=== PATIENT | female | born 1975 | race Caucasian/White ===

== ENCOUNTER → 2017-02-11 | Outpatient (REF) | payer OTHER ==
[~2017-02-11] MED LIST: /LOR25TA OR; ACET65TA OR; COLA50CA3 PO; IBUP600T26 PO; NORCO ANEXSIA PO; VICO5TAB16 PO; WELBUTRIN PO; WELLBUTRIN
[2017-02-11 12:45] LABS: BASO % 0.4 % (0.0-1.0); EOS % 1.1 % (0.0-3.0); LARGE UNSTAINED CELL # 0.1 K/mm3 (0.0-0.4); LARGE UNSTAINED CELL % 1.5 % (0.0-4.0); LYMPH # 1.4 K/mm3 (1.5-4.5); LYMPH % 28.8 % (24.0-44.0); MEAN CORPUSCULAR HEMOGLOBIN 29.7 pg (27.0-33.0); MEAN CORPUSCULAR HGB CONC 32.7 g/dl (32.0-36.5); MONO # 0.4 K/mm3 (0.0-0.8); MONO % 8.4 % (0.0-5.0); NEUTROPHILS # 2.8 K/mm3 (1.8-7.7); NEUTROPHILS % 59.8 % (36.0-66.0); PLATELET COUNT, AUTOMATED 273 k/mm3 (150-450); RED CELL DISTRIBUTION WIDTH 12.1 % (11.5-14.5); WHITE BLOOD COUNT 4.7 K/mm3 (4.0-10.0)
[2017-02-11 12:53] LABS: ALBUMIN 4.3 GM/DL (3.2-5.2); ALBUMIN/GLOBULIN RATIO 1.54 (1.00-1.93); ALKALINE PHOSPHATASE 45 U/L (45-117); ALT/SGPT 15 U/L (12-78); ANION GAP 8 MEQ/L (8-16); AST/SGOT 6 U/L (15-37); BILIRUBIN,TOTAL 0.6 MG/DL (0.2-1.0); BLOOD UREA NITROGEN 14 MG/DL (7-18); CALCIUM LEVEL 9.1 MG/DL (8.5-10.1); CARBON DIOXIDE LEVEL 28 MEQ/L (21-32); CHLORIDE LEVEL 104 MEQ/L (98-107); CHOLESTEROL LEVEL 193 MG/DL (<200); CREATININE FOR GFR 0.72 MG/DL (0.55-1.02); GLOMERULAR FILTRATION RATE > 60.0 (>58); GLUCOSE, FASTING 91 MG/DL (70-105); POTASSIUM SERUM 4.6 MEQ/L (3.5-5.1); SODIUM LEVEL 140 MEQ/L (136-145); TOTAL PROTEIN 7.1 GM/DL (6.4-8.2); TRIGLYCERIDES LEVEL 89 MG/DL (<150)
== END ==
LOC: M SFHCADAM 08:22
PROVIDERS: ATTEND Physician Assistant Medical
DX: Z00.00 Encounter for general adult medical examination without abnormal findings (principal); F34.1 Dysthymic disorder; E55.9 Vitamin D deficiency, unspecified

== ENCOUNTER 2018-08-02 21:18 | Emergency (ER) | payer OTHER ==
[2018-08-02] MEDS: NS 1,000 ML IV (22:10)
[2018-08-02] MEDS: MORPHINE 2 MG/ML 1ML SYRINGE (J2270) IV (22:10)
[2018-08-02] MEDS: ONDANSETRON 4MG/2ML VIAL (J2405) IV (22:10)
[2018-08-02] MEDS: KETOROLAC 30 MG/ML VIAL (J1885) IV (22:10)
[2018-08-02 22:13] LABS: BILIRUBIN, URINE MANUAL NEGATIVE (NEGATIVE); BLOOD URINE MANUAL RFX POSITIVE (NEGATIVE); GLUCOSE, URINE (UA) MANUAL NEGATIVE (NEGATIVE); KETONE, URINE MANUAL NEGATIVE (NEGATIVE); MICROSCOPIC INDICATED? RFX YES (NO); NITRITE, URINE MANUAL RFX POSITIVE (NEGATIVE); PROTEIN, URINE MANUAL REFLEX NEGATIVE (NEGATIVE); SP GRAVITY,URINE MANUAL REFLEX 1.005 (1.002-1.035); UROBILINOGEN, URINE MANUAL NORMAL (NORMAL)
[2018-08-02 22:16] LABS: BASO % 0.3 % (0.0-1.0); EOS # 0.1 10^3/uL (0.0-0.50); EOS % 0.7 % (0.0-3.0); HEMOGLOBIN 13.1 g/dl (12.0-15.5); IMMATURE GRANULOCYTE % 0.4 % (0-3.0); LYMPH # 2.1 10^3/uL (1.5-4.5); MEAN CORPUSCULAR HEMOGLOBIN 30.5 pg (27.0-33.0); MEAN CORPUSCULAR HGB CONC 33.6 g/dl (32.0-36.5); MEAN CORPUSCULAR VOLUME 90.7 fl (80.0-96.0); MONO # 0.7 10^3/uL (0.0-0.8); MONO % 5.9 % (0.0-5.0); NEUTROPHILS # 8.7 10^3/uL (1.8-7.7); NEUTROPHILS % 74.7 % (36.0-66.0); PLATELET COUNT, AUTOMATED 314 10^3/uL (150-450); RED CELL DISTRIBUTION WIDTH 12.1 % (11.5-14.5); WHITE BLOOD COUNT 11.6 10^3/uL (4.0-10.0)
[2018-08-02 22:20] LABS: CONTROL LINE HCG INT CTR LINE PRESENT; HCG, SERUM QUALITATIVE NEGATIVE (NEGATIVE)
[2018-08-02 22:23] LABS: BACTERIA, URINE SMALL AMOUNT; HYALINE CAST, URINE NONE SEEN /lpf (0-1); MICROSCOPIC EXAM PERFORMED; SQUAMOUS EPITHELIAL CELL URINE SMALL AMOUNT /hpf (SMALL AMT)
[2018-08-02 22:26] LABS: ALBUMIN/GLOBULIN RATIO 1.18 (1.00-1.93); ALKALINE PHOSPHATASE 66 U/L (45-117); ALT/SGPT 20 U/L (12-78); ANION GAP 9 MEQ/L (8-16); AST/SGOT 17 U/L (7-37); BILIRUBIN,DIRECT < 0.1 MG/DL (0.0-0.2); BILIRUBIN,TOTAL 0.4 MG/DL (0.2-1.0); BLOOD UREA NITROGEN 9 MG/DL (7-18); CARBON DIOXIDE LEVEL 22 MEQ/L (21-32); CHLORIDE LEVEL 110 MEQ/L (98-107); CREATININE FOR GFR 0.78 MG/DL (0.55-1.30); GLOMERULAR FILTRATION RATE > 60.0 (>58); GLUCOSE, FASTING 88 MG/DL (70-100); LIPASE 257 U/L (73-393); POTASSIUM SERUM 4.1 MEQ/L (3.5-5.1); SODIUM LEVEL 141 MEQ/L (136-145); TOTAL PROTEIN 7.4 GM/DL (6.4-8.2)
[2018-08-03] MEDS: CIPROFLOXACIN 500 MG TAB PO (00:50)
[2018-08-03] MEDS: NORCO 5/325MG TABLET (BULK FOR ED) PO (00:50)
== END 2018-08-03 00:59 | disposition home or self-care (01) ==
LOC: M ED 08-03 00:59
DX: N39.0 Urinary tract infection, site not specified (principal); R11.0 Nausea; G89.29 Other chronic pain; Z79.899 Other long term (current) drug therapy
CPT/HCPCS: J2405

== ENCOUNTER → 2018-08-02 | Outpatient (REF) | payer OTHER ==
[2018-08-02 22:22] LABS: APPEARANCE, URINE CLEAR (CLEAR); BACTERIA, URINE AUTO 1+ (NEGATIVE); BILIRUBIN, URINE AUTO NEGATIVE (NEGATIVE); BLOOD, URINE BLOOD 3+ (NEGATIVE); COLOR, URINE AMBER (YELLOW); GLUCOSE, URINE (UA) AUTO NEGATIVE (NEGATIVE); KETONE, URINE AUTO NEGATIVE (NEGATIVE); LEUKOCYTE ESTERASE, URINE AUTO 3+ (NEGATIVE); NITRITE, URINE AUTO POSITIVE (NEGATIVE); PROTEIN, URINE AUTO NEGATIVE (NEGATIVE); RBC, URINE AUTO 0 /HPF (0-3); SPECIFIC GRAVITY URINE AUTO 1.001 (1.002-1.035); SQUAMOUS EPITHELIAL CELL UR AU 0 /HPF (0-6); WBC, URINE AUTO 29 /HPF (0-3)
== END ==
LOC: M LAB REF 15:30
DX: N39.0 Urinary tract infection, site not specified (principal)

== ENCOUNTER → 2019-01-02 | Outpatient (CLI) | payer OTHER ==
[~2019-01-02] MED LIST changes: +CIPR-249 PO; +IBUP-1022 PO
--- NOTE | 2019-01-02 15:03 | REP ---
RIGHT SHOULDER, THREE VIEWS: HISTORY: Contusion. There is no acute fracture or dislocation. The joint spaces are normal in appearance. A subchondral cyst is present in the head of the humerus. IMPRESSION:There is no acute fracture or dislocation. Electronically Signed by Tomas Byrd MD 01/02/2019 03:05 P
== END ==
LOC: M ADAMS 11:39
PROVIDERS: ATTEND Physician Assistant
DX: S40.011A Contusion of right shoulder, initial encounter (principal); Y92.89 Other specified places as the place of occurrence of the external cause; Y93.89 Activity, other specified; Y99.8 Other external cause status; X58.XXXA Exposure to other specified factors, initial encounter

== ENCOUNTER → 2020-10-03 | Outpatient (CLI) | payer OTHER ==
--- NOTE | 2020-10-04 03:43 | REP ---
INDICATION: RIGHT HIP PAIN, LOW BACK PAIN RADIATING TO RIGHT LEG COMPARISON: None. TECHNIQUE: AP, lateral, bilateral oblique, and coned-down views of the lumbar spine. FINDINGS: Alignment and lordosis maintained. Vertebral bodies are intact. Disc spaces are relatively well maintained although minimal disc space narrowing at L4-5 and L5-S1 cannot be excluded. Chronic L5 spondylolysis without spondylolisthesis cannot be excluded. No acute vertebral body fracture/compression injury or subluxation. IMPRESSION: Minimal disc space narrowing at L4-5 and L5-S1 cannot be excluded. Chronic L5 spondylolysis without spondylolisthesis cannot be excluded. <Electronically signed by Jeramy Andrade > 10/04/20 [id number]
--- NOTE | 2020-10-04 03:45 | REP ---
INDICATION: RIGHT HIP PAIN, LOW BACK PAIN RADIATING TO RIGHT LEG COMPARISON: None. TECHNIQUE: AP and frog-lateral views of the hip FINDINGS: No evidence for acute or healed injury. Hip joint space appears intact and essentially age-appropriate. No arthritic changes are appreciated. No periarticular calcifications or loose bodies are identified. Surrounding soft tissues are normal. IMPRESSION: Age-appropriate right hip radiographs. <Electronically signed by Jeramy Andrade > 10/04/20 [id number]
== END ==
LOC: M ADAMS 08:43
PROVIDERS: ATTEND Physician Assistant Medical
DX: M54.5 Low back pain (principal); M25.551 Pain in right hip

== ENCOUNTER → 2020-10-03 | Outpatient (REF) | payer OTHER ==
[2020-10-03 12:52] LABS: BASO # 0.1 10^3/uL (0.0-0.2); BASO % 0.7 % (0.0-1.0); EOS # 0.1 10^3/uL (0.0-0.5); EOS % 1.1 % (0.0-3.0); HEMATOCRIT 41.8 % (36.0-47.0); HEMOGLOBIN 13.3 g/dl (12.0-15.5); LYMPH # 1.7 10^3/uL (1.5-5.0); LYMPH % 23.7 % (24.0-44.0); MEAN CORPUSCULAR HEMOGLOBIN 29.4 pg (27.0-33.0); MEAN CORPUSCULAR HGB CONC 31.8 g/dl (32.0-36.5); MEAN CORPUSCULAR VOLUME 92.5 fl (80.0-96.0); MONO # 0.7 10^3/uL (0.0-0.8); MONO % 10.5 % (0.0-5.0); NEUTROPHILS # 4.5 10^3/uL (1.5-8.5); NEUTROPHILS % 63.6 % (36.0-66.0); PLATELET COUNT, AUTOMATED 314 10^3/uL (150-450); RED BLOOD COUNT 4.52 10^6/uL (4.00-5.40)
[2020-10-03 13:42] LABS: ALBUMIN 4.2 GM/DL (3.2-5.2); ALT/SGPT 16 U/L (12-78); BILIRUBIN,TOTAL 0.8 MG/DL (0.2-1.0); BLOOD UREA NITROGEN 12 MG/DL (7-18); CALCIUM LEVEL 9.2 MG/DL (8.5-10.1); CARBON DIOXIDE LEVEL 25 MEQ/L (21-32); CHLORIDE LEVEL 103 MEQ/L (98-107); CHOLESTEROL LEVEL 232 MG/DL (<200); CHOLESTEROL RISK RATIO 3.314 (<5); CREATININE FOR GFR 0.88 MG/DL (0.55-1.30); FREE T4 0.94 NG/DL (0.76-1.46); GLOMERULAR FILTRATION RATE > 60.0 (>58); GLUCOSE, FASTING 95 MG/DL (70-100); HDL CHOLESTEROL 70 MG/DL (>40); LDL CHOLESTEROL 145 MG/DL (<100); NON-HDL-C 162 MG/DL; POTASSIUM SERUM 4.8 MEQ/L (3.5-5.1); SODIUM LEVEL 137 MEQ/L (136-145); TOTAL 25(OH) VITAMIN D 21.8 NG/ML (30.0-100.0); TOTAL PROTEIN 7.4 GM/DL (6.4-8.2); TRIGLYCERIDES LEVEL 84 MG/DL (<150)
== END ==
LOC: M SFHCADAM 08:40
PROVIDERS: ATTEND Physician Assistant Medical
DX: F34.1 Dysthymic disorder (principal); E55.9 Vitamin D deficiency, unspecified

== ENCOUNTER → 2020-11-07 | Outpatient (CLI) | payer OTHER ==
--- NOTE | 2020-11-07 10:04 | REPVR ---
PROCEDURE INFORMATION: Exam: MR Lumbar Spine Without Contrast. Exam date and time: 11/07/2020 7:58 AM Age: 45 years old Clinical indication: Low back pain; Additional info: Lumbar disc degeneration, lbp, RT hip pain TECHNIQUE: Imaging protocol: Multiplanar magnetic resonance images of the lumbar spine without intravenous contrast. COMPARISON: DX SPINE LS COMPLETE 10/03/2020 8:31 AM FINDINGS: Vertebrae: Unremarkable. Spinal cord: Normal signal. No cord compression. L1-L2: No significant disc disease. No significant spinal canal stenosis. No neural foraminal stenosis. L2-L3: No significant disc disease. No significant spinal canal stenosis. No neural foraminal stenosis. L3-L4: There is mild disc bulging. There is facet arthropathy and ligamentum flavum hypertrophy. There is mild spinal canal stenosis. L4-L5: There is degenerative disc disease including disc space narrowing and dessication. There is a moderate disc bulge with a small superimposed central disc herniation. Disc bulging extends into both neural foramen causing mild bilateral neural foraminal narrowing, right worse than left. There is facet arthropathy and ligamentum flavum hypertrophy. L5-S1: There is mild disc bulging. Soft tissues: Unremarkable. IMPRESSION: Mild multilevel degenerative changes in as described above. Electronically signed by: Dheeraj Baumann On 11/07/2020 10:04:44 AM
== END ==
LOC: M RAD 06:42
PROVIDERS: ATTEND Physician Assistant Medical
DX: M51.36 Other intervertebral disc degeneration, lumbar region (principal); M51.27 Other intervertebral disc displacement, lumbosacral region; M25.551 Pain in right hip

== ENCOUNTER → 2020-12-12 | Outpatient (CLI) | payer OTHER | LOC: M LABSMTC 14:19 | PROVIDERS: ATTEND Family Medicine | DX: Z20.822 Contact with and (suspected) exposure to COVID-19 (principal) ==

== ENCOUNTER → 2021-02-18 | Outpatient (REF) | payer OTHER | LOC: M SFHCADAM 11:35 | PROVIDERS: ATTEND Physician Assistant Medical | DX: R30.0 Dysuria (principal) ==

== ENCOUNTER → 2021-02-20 | Outpatient (REF) | payer OTHER ==
[2021-02-20 12:43] LABS: APPEARANCE, URINE MANUAL HAZY (CLEAR); COLOR, URINE MANUAL ORANGE (YELLOW); SPECIFIC GRAVITY,URINE MANUAL 1.013 (1.002-1.035)
[2021-02-20 12:44] LABS: BILIRUBIN, URINE MANUAL OBSCURED (NEGATIVE); BLOOD URINE MANUAL OBSCURED (NEGATIVE); GLUCOSE, URINE (UA) MANUAL OBSCURED mg/dL (NEGATIVE); KETONE, URINE MANUAL OBSCURED mg/dL (NEGATIVE); LEUKOCYTE ESTERASE, URINE MAN OBSCURED (NEGATIVE); NITRITE, URINE MANUAL OBSCURED (NEGATIVE); PROTEIN, URINE MANUAL OBSCURED mg/dL (NEGATIVE); UROBILINOGEN, URINE MANUAL OBSCURED mg/dl (NORMAL)
[2021-02-20 12:46] LABS: BACTERIA, URINE SMALL AMOUNT; HYALINE CAST, URINE NONE SEEN /lpf (0-1); SQUAMOUS EPITHELIAL CELL URINE SMALL AMOUNT /hpf (SMALL AMT)
== END ==
LOC: M SFHCADAM 11:26
PROVIDERS: ATTEND Physician Assistant Medical
DX: R30.0 Dysuria (principal)

== ENCOUNTER → 2021-03-10 | Outpatient (REF) | payer OTHER ==
[2021-03-10 19:11] LABS: APPEARANCE, URINE CLEAR (CLEAR); BACTERIA, URINE AUTO NEGATIVE (NEGATIVE); BILIRUBIN, URINE AUTO NEGATIVE (NEGATIVE); BLOOD, URINE BLOOD 1+ (NEGATIVE); COLOR, URINE YELLOW (YELLOW); GLUCOSE, URINE (UA) AUTO NEGATIVE (NEGATIVE); KETONE, URINE AUTO NEGATIVE (NEGATIVE); LEUKOCYTE ESTERASE, URINE AUTO NEGATIVE (NEGATIVE); MUCUS, URINE SMALL (NEGATIVE); NITRITE, URINE AUTO NEGATIVE (NEGATIVE); PROTEIN, URINE AUTO NEGATIVE (NEGATIVE); RBC, URINE AUTO 2 /HPF (0-3); SPECIFIC GRAVITY URINE AUTO 1.019 (1.002-1.035); SQUAMOUS EPITHELIAL CELL UR AU 1 /HPF (0-6); UROBILINOGEN, URINE AUTO 0.2 mg/dL (0.0-2.0); WBC, URINE AUTO 0 /HPF (0-3)
== END ==
LOC: M LAB REF 16:26
PROVIDERS: ATTEND Obstetrics & Gynecology
DX: N39.41 Urge incontinence (principal)

== ENCOUNTER → 2021-04-28 | Outpatient (REF) | payer OTHER | LOC: M SFHCPLAZ 09:50 | PROVIDERS: ATTEND Physician Assistant | DX: R50.9 Fever, unspecified (principal) ==

== ENCOUNTER → 2021-04-29 | Outpatient (CLI) | payer OTHER ==
[2021-04-29 10:06] LABS: BASO % 0.6 % (0.0-1.0); EOS # 0.1 10^3/uL (0.0-0.5); EOS % 1.8 % (0.0-3.0); HEMATOCRIT 39.7 % (36.0-47.0); HEMOGLOBIN 13.1 g/dl (12.0-15.5); LYMPH # 1.2 10^3/uL (1.5-5.0); LYMPH % 23.5 % (24.0-44.0); MEAN CORPUSCULAR HEMOGLOBIN 30.1 pg (27.0-33.0); MEAN CORPUSCULAR VOLUME 91.3 fl (80.0-96.0); MONO # 0.7 10^3/uL (0.0-0.8); MONO % 13.3 % (2.0-8.0); NEUTROPHILS # 3.1 10^3/uL (1.5-8.5); NEUTROPHILS % 60.6 % (36.0-66.0); PLATELET COUNT, AUTOMATED 256 10^3/uL (150-450); RED BLOOD COUNT 4.35 10^6/uL (4.00-5.40); WHITE BLOOD COUNT 5.1 10^3/uL (4.0-10.0)
[2021-04-29 11:07] LABS: ALBUMIN 3.5 GM/DL (3.2-5.2); ALT/SGPT 12 U/L (12-78); BILIRUBIN,TOTAL 0.5 MG/DL (0.2-1.0); BLOOD UREA NITROGEN 11 MG/DL (7-18); CALCIUM LEVEL 8.9 MG/DL (8.5-10.1); CARBON DIOXIDE LEVEL 31 MEQ/L (21-32); CHLORIDE LEVEL 104 MEQ/L (98-107); GLOMERULAR FILTRATION RATE > 60.0 (>58); GLUCOSE, FASTING 90 MG/DL (70-100); POTASSIUM SERUM 4.5 MEQ/L (3.5-5.1); SODIUM LEVEL 137 MEQ/L (136-145); TOTAL PROTEIN 6.5 GM/DL (6.4-8.2)
== END ==
LOC: M LAB 09:26
PROVIDERS: ATTEND Physician Assistant
DX: R50.9 Fever, unspecified (principal)

== ENCOUNTER → 2021-04-29 | Outpatient (CLI) | payer OTHER ==
--- NOTE | 2021-04-29 09:02 | REP ---
INDICATION: FEVER IN ADULT COMPARISON: 06/06/2012. TECHNIQUE: PA/Lateral FINDINGS: Lungs: Clear, no infiltrate. Heart: Normal in size. Mediastinum: Mediastinal silhouette unremarkable. Pleural angles: Unremarkable.. Bones and soft tissues: Unremarkable. IMPRESSION: No acute pulmonary disease. <Electronically signed by Johny Smalls > 04/29/21 [id number]
== END ==
LOC: M ADAMS 08:10
PROVIDERS: ATTEND Physician Assistant
DX: R50.9 Fever, unspecified (principal)

== ENCOUNTER → 2022-01-22 | Outpatient (CLI) | payer OTHER | LOC: M WHC 08:00 | PROVIDERS: ATTEND Physician Assistant Medical | DX: Z12.31 Encounter for screening mammogram for malignant neoplasm of breast (principal) ==

== ENCOUNTER → 2022-02-25 | Outpatient (CLI) | payer OTHER ==
[~2022-02-25] MED LIST changes: +THERTAB52 PO; +TRAZ-252 PO; +WELLTAB40 PO
== END ==
LOC: M LABSMTC 09:58
PROVIDERS: ATTEND Anesthesiology
DX: Z01.818 Encounter for other preprocedural examination (principal); Z11.52 Encounter for screening for COVID-19

== ENCOUNTER 2022-03-02 08:01 | Day surgery (SDC) | payer OTHER ==
[~2022-03-02] VITALS: Ht 162.6 cm; Wt 69.4 kg
[~2022-03-02 08:01] MED LIST changes: +LIDOCAINE 1% MDV 20ML VIAL SQ PRN
[2022-03-02] MEDS ORDERED: MIDAZOLAM INJ 2MG/2ML VIAL (J2250 PER 1MG) As Ordered ONE (08:50)
[2022-03-02] MEDS ORDERED: dexameTHASONE 4 MG/ML 1ML VIAL (J1100 PER 1MG) As Ordered ONE (08:50)
[2022-03-02] MEDS ORDERED: propofoL 200 MG/20 ML VIAL As Ordered ONE (08:50)
[2022-03-02] MEDS ORDERED: ONDANSETRON 4MG/2ML VIAL As Ordered ONE (08:50)
[2022-03-02] MEDS ORDERED: fentaNYL 250 MCG/5 ML INJECTION As Ordered ONE (08:50)
[2022-03-02] MEDS ORDERED: ROCURONIUM BROMIDE 50 MG/5 ML VIAL As Ordered ONE (08:50)
[2022-03-02] MEDS ORDERED: LIDOCAINE 2% 100MG/5ML SDV (FOR ANES.) As Ordered ONE (08:51)
[2022-03-02] MEDS ORDERED: LR 1,000 ML IV ONE (09:00)
[2022-03-02] MEDS ORDERED: COCAINE 4% 4ML NASAL SOLUTION BTL As Ordered ONE (09:28)
[2022-03-02] MEDS: OXYMETAZOLINE 0.05% NASAL SPRAY (AFRIN) As Ordered ONE ×2 (09:28→10:40)
[2022-03-02] MEDS ORDERED: SEVOFLURANE INHAL SOLN 250 ML BTL As Ordered ONE (09:38)
[2022-03-02] MEDS: LIDOCAINE W/EPINEPHRINE 1% 20ML VIAL As Ordered ONE ×2 (10:22→10:36)
[2022-03-02] MEDS ORDERED: MORPHINE 4 MG/ML 1ML VIAL/SYRINGE IV PRN (11:10)
[2022-03-02] MEDS ORDERED: ANEXSIA, NORCO 7.5MG/325MG TABLET(HYDROCODONE/APAP) PO PRN (11:10)
[2022-03-02] MEDS ORDERED: LR 1,000 ML IV SCH ×2 (11:10)
[2022-03-02] MEDS ORDERED: METOCLOPRAMIDE INJ 10MG/2ML VIAL (J2765 PER 1) IV PRN (11:10)
[2022-03-02] MEDS ORDERED: ONDANSETRON 4MG/2ML VIAL IV PRN ×2 (11:10)
[2022-03-02] MEDS ORDERED: oxyCODONE 5MG TAB PO PRN (11:10)
[2022-03-02] MEDS ORDERED: fentaNYL 100 MCG/2 ML INJECTION IV PRN (11:10)
[2022-03-02] MEDS ORDERED: HYDROMORPHONE HCL 0.5 MG/ 0.5 ML SYRINGE (J1170 PER 1) IV PRN (11:10)
[2022-03-02 12:50] VITALS: BP 150/85
== END 2022-03-02 13:10 | disposition home or self-care (01) ==
LOC: M SDC 08:01
PROVIDERS: ATTEND Otolaryngology
DX: J34.2 Deviated nasal septum (principal); J34.3 Hypertrophy of nasal turbinates; K57.92 Diverticulitis of intestine, part unspecified, without perforation or abscess without bleeding; F41.9 Anxiety disorder, unspecified; F32.9 Major depressive disorder, single episode, unspecified; Z79.899 Other long term (current) drug therapy
CPT/HCPCS: 30140; 30520; 88300; C9046; J1100; J1170; J2250; J2405; J3010

== ENCOUNTER → 2022-11-17 | Outpatient (REF) | payer OTHER ==
[~2022-11-17] MED LIST changes: -LIDOCAINE 1% MDV 20ML VIAL SQ PRN
[2022-11-17 12:41] LABS: BASO % 0.6 % (0.0-1.0); EOS # 0.1 10^3/uL (0.0-0.5); EOS % 1.6 % (0.0-3.0); HEMATOCRIT 40.9 % (36.0-47.0); HEMOGLOBIN 13.3 g/dl (12.0-15.5); LYMPH # 1.7 10^3/uL (1.5-5.0); LYMPH % 27.4 % (24.0-44.0); MEAN CORPUSCULAR HEMOGLOBIN 30.8 pg (27.0-33.0); MEAN CORPUSCULAR HGB CONC 32.5 g/dl (32.0-36.5); MEAN CORPUSCULAR VOLUME 94.7 fl (80.0-96.0); MONO # 0.7 10^3/uL (0.0-0.8); MONO % 11.5 % (2.0-8.0); NEUTROPHILS # 3.6 10^3/uL (1.5-8.5); NEUTROPHILS % 58.4 % (36.0-66.0); PLATELET COUNT, AUTOMATED 277 10^3/uL (150-450); RED BLOOD COUNT 4.32 10^6/uL (4.00-5.40); WHITE BLOOD COUNT 6.2 10^3/uL (4.0-10.0)
[2022-11-17 13:06] LABS: ALBUMIN 3.9 G/DL (3.2-5.2); ALKALINE PHOSPHATASE 47 U/L (46-116); ALT/SGPT 10 U/L (7.0-40); AST/SGOT 14 U/L (<34); BILIRUBIN,TOTAL 0.3 MG/DL (0.3-1.2); BLOOD UREA NITROGEN 14 MG/DL (9-23); CALCIUM LEVEL 8.9 MG/DL (8.5-10.1); CARBON DIOXIDE LEVEL 27 MMOL/L (20-31); CHLORIDE LEVEL 105 MMOL/L (98-107); CHOLESTEROL LEVEL 200 MG/DL (<200); CHOLESTEROL RISK RATIO 2.58 (<5); CREATININE FOR GFR 0.75 MG/DL (0.55-1.30); GLOMERULAR FILTRATION RATE > 60.0 (>58); GLUCOSE, FASTING 75 MG/DL (60-100); HDL CHOLESTEROL 77.3 MG/DL (>40); LDL CHOLESTEROL 88.9 MG/DL (<100); NON-HDL-C 123 MG/DL; POTASSIUM SERUM 4.5 MMOL/L (3.5-5.1); SODIUM LEVEL 139 MMOL/L (136-145); THYROID STIMULATING HORMONE 2.018 uIU/ML (0.55-4.78); TOTAL PROTEIN 6.9 G/DL (5.7-8.2); TRIGLYCERIDES LEVEL 169 MG/DL (<150)
== END ==
LOC: M SFHCADAM 09:47
PROVIDERS: ATTEND Physician Assistant Medical
DX: E78.2 Mixed hyperlipidemia (principal); E55.9 Vitamin D deficiency, unspecified; F51.01 Primary insomnia; F34.1 Dysthymic disorder

== ENCOUNTER → 2023-03-09 | Outpatient (CLI) | payer OTHER | LOC: M PLAIMG 15:58 | PROVIDERS: ATTEND Physician Assistant | DX: R05.9 Cough, unspecified (principal) ==

== ENCOUNTER → 2023-03-25 | Outpatient (CLI) | payer OTHER ==
[~2023-03-25] MED LIST changes: +ISOVUE-370 76% 100ML VIAL As Ordered ONE
== END ==
LOC: M RAD 10:38
PROVIDERS: ATTEND Physician Assistant
DX: R91.1 Solitary pulmonary nodule (principal)
CPT/HCPCS: 71260; Q9967

== ENCOUNTER → 2024-04-13 | Outpatient (REF) | payer OTHER ==
[~2024-04-13] MED LIST changes: -ISOVUE-370 76% 100ML VIAL As Ordered ONE
== END ==
LOC: M SFHCWAGY 15:03
PROVIDERS: ATTEND Nurse Practitioner Family
DX: Z12.72 Encounter for screening for malignant neoplasm of vagina (principal)
CPT/HCPCS: 87624; G0123

== ENCOUNTER → 2024-04-13 | Outpatient (CLI) | payer OTHER | LOC: M WHC 07:29 | PROVIDERS: ATTEND Nurse Practitioner Family | DX: Z12.31 Encounter for screening mammogram for malignant neoplasm of breast (principal) ==

== ENCOUNTER → 2024-04-13 | Outpatient (CLI) | payer OTHER ==
[2024-04-13 14:43] LABS: BASO % 0.8 % (0.0-1.0); EOS # 0.1 10^3/uL (0.0-0.5); EOS % 1.8 % (0.0-3.0); HEMATOCRIT 38.9 % (36.0-47.0); HEMOGLOBIN 12.8 g/dl (12.0-15.5); LYMPH # 1.5 10^3/uL (1.5-5.0); LYMPH % 30.3 % (24.0-44.0); MEAN CORPUSCULAR HEMOGLOBIN 30.5 pg (27.0-33.0); MEAN CORPUSCULAR HGB CONC 32.9 g/dl (32.0-36.5); MEAN CORPUSCULAR VOLUME 92.8 fl (80.0-96.0); MONO # 0.6 10^3/uL (0.0-0.8); NEUTROPHILS # 2.7 10^3/uL (1.5-8.5); NEUTROPHILS % 54.9 % (36.0-66.0); PLATELET COUNT, AUTOMATED 247 10^3/uL (150-450); RED BLOOD COUNT 4.19 10^6/uL (4.00-5.40); WHITE BLOOD COUNT 4.9 10^3/uL (4.0-10.0)
[2024-04-13 15:09] LABS: ALBUMIN 3.9 G/DL (3.2-5.2); ALKALINE PHOSPHATASE 49 U/L (46-116); ALT/SGPT 18 U/L (7.0-40); AST/SGOT 9 U/L (<34); BILIRUBIN,TOTAL 0.6 MG/DL (0.3-1.2); BLOOD UREA NITROGEN 13 MG/DL (9-23); CALCIUM LEVEL 9.7 MG/DL (8.5-10.1); CARBON DIOXIDE LEVEL 29 MMOL/L (20-31); CHLORIDE LEVEL 108 MMOL/L (98-107); CHOLESTEROL LEVEL 219 MG/DL (<200); CHOLESTEROL RISK RATIO 3.03 (<5); CREATININE FOR GFR 0.76 MG/DL (0.55-1.30); GLOMERULAR FILTRATION RATE > 60.0 (>58); GLUCOSE, FASTING 86 MG/DL (60-100); HDL CHOLESTEROL 72.1 MG/DL (>40); LDL CHOLESTEROL 134.3 MG/DL (<100); NON-HDL-C 146.9 MG/DL; POTASSIUM SERUM 4.6 MMOL/L (3.5-5.1); SODIUM LEVEL 141 MMOL/L (136-145); TOTAL PROTEIN 6.6 G/DL (5.7-8.2); TRIGLYCERIDES LEVEL 63 MG/DL (<150)
[2024-04-13 15:10] LABS: THYROID STIMULATING HORMONE 2.113 uIU/ML (0.55-4.78)
[2024-04-13 15:11] LABS: TOTAL 25(OH) VITAMIN D 55.6 NG/ML (20.0-100.0)
== END ==
LOC: M PLALAB 09:07
PROVIDERS: ATTEND Physician Assistant Medical
DX: Z00.00 Encounter for general adult medical examination without abnormal findings (principal); E55.9 Vitamin D deficiency, unspecified; E78.2 Mixed hyperlipidemia; F51.01 Primary insomnia; F34.1 Dysthymic disorder

== ENCOUNTER → 2025-08-23 | Outpatient (REF) | payer OTHER ==
[~2025-08-23] MED LIST changes: -IBUP-1022 PO; +IBUP600T42 PO
== END ==
LOC: M LAB REF 08:35
PROVIDERS: ATTEND Surgery
DX: L72.0 Epidermal cyst (principal)

== ENCOUNTER → 2025-09-17 | Outpatient (REF) | payer OTHER ==
[2025-09-17 13:43] LABS: BASO # 0.1 10^3/uL (0.0-0.2); BASO % 0.9 % (0.0-1.0); EOS # 0.1 10^3/uL (0.0-0.5); EOS % 2.1 % (0.0-3.0); LYMPH # 1.4 10^3/uL (1.5-5.0); LYMPH % 20.9 % (24.0-44.0); MONO # 0.7 10^3/uL (0.0-0.8); MONO % 10.9 % (2.0-8.0); NEUTROPHILS # 4.4 10^3/uL (1.5-8.5); NEUTROPHILS % 64.8 % (36.0-66.0); PLATELET COUNT, AUTOMATED 316 10^3/uL (150-450)
[2025-09-17 14:08] LABS: IRON (FE) 103 UG/DL (50-170); LDH LACTATE DEHYDROGENASE 186 U/L (120-246)
[2025-09-17 14:09] LABS: ALT/SGPT 13 U/L (7.0-40); AST/SGOT 19 U/L (<34); CALCIUM LEVEL 9.6 MG/DL (8.5-10.1); CARBON DIOXIDE LEVEL 28 MMOL/L (20-31); CHLORIDE LEVEL 103 MMOL/L (98-107); CHOLESTEROL LEVEL 245 MG/DL (<200); CHOLESTEROL RISK RATIO 2.66 (<5); CREATININE FOR GFR 0.69 MG/DL (0.55-1.30); FREE T4 1.23 NG/DL (0.89-1.76); GLOMERULAR FILTRATION RATE > 90.0 (>51); LDL CHOLESTEROL 141.4 MG/DL (<100); NON-HDL-C 153.0 MG/DL; PERCENT SATURATION 34.1 % (13.2-45.0); POTASSIUM SERUM 5.0 MMOL/L (3.5-5.1); SODIUM LEVEL 141 MMOL/L (136-145); TRIGLYCERIDES LEVEL 58 MG/DL (<150)
[2025-09-17 14:10] LABS: TOTAL 25(OH) VITAMIN D 35.9 NG/ML (20.0-100.0); VITAMIN B12 LEVEL 577 PG/ML (211-911)
== END ==
LOC: M SFHCADAM 11:08
PROVIDERS: ATTEND Physician Assistant Medical
DX: E78.2 Mixed hyperlipidemia (principal); F34.1 Dysthymic disorder; F51.01 Primary insomnia; E55.9 Vitamin D deficiency, unspecified; Z83.2 Family history of diseases of the blood and blood-forming organs and certain disorders involving the immune mechanism; Z83.49 Family history of other endocrine, nutritional and metabolic diseases

== ENCOUNTER → 2025-11-07 | Outpatient (CLI) | payer OTHER | LOC: M RAD 13:04 | PROVIDERS: ATTEND Physician Assistant Medical | DX: E01.0 Iodine-deficiency related diffuse (endemic) goiter (principal) ==